=== PATIENT | male | born 1975 | race African-American/Black ===

== ENCOUNTER 2020-11-15 16:31 | Observation (INO) ==
[2020-11-15] MEDS ORDERED: HYDROmorphone 2 MG/1 ML VIAL IV STA ×2 (17:15→18:41)
[2020-11-15] MEDS ORDERED: ONDANSETRON 4 MG/2 ML VIAL IV STA (17:15)
[2020-11-15] MEDS ORDERED: PANTOPRAZOLE 40 MG VIAL IV STA (17:15)
[2020-11-15 17:56] LABS: Basophils % 0.3 % (0.0-0.8); Eosinophils # 0.1 10*3/uL (0.0-0.87); Eosinophils % 0.6 % (0.00-10.9); Hemoglobin 15.1 GM/DL (14.0-18.0); Immature Granulocytes % 0.5 %; Immature Granulocytes Absolute 0.06 #; Lymphocytes # 1.5 10*3/uL (1.4-4.0); Lymphocytes % 13.1 % (21.2-54.2); Mean Corpuscular HGB Conc 32.8 GM/DL (32-36); Mean Corpuscular Volume 88.3 FL (87-102); Mean Platelet Volume 9.9 FL (9.6-12.0); Monocytes % 4.4 % (1.7-12.7); Neutrophils % 81.1 % (38.7-73.9); Platelet Count 292 T/CUMM (130-400); Red Blood Count 5.21 MC/CUMM (3.8-5.5); Red Cell Distribution Width 14.2 % (9.3-17.3); White Blood Count 11.5 T/CUMM (4-12)
[2020-11-15 18:15] LABS: Albumin 4.3 G/DL (3.4-5.0); Bilirubin,Total 0.6 MG/DL (0.2-1.0); Calcium 9.3 MG/DL (8.5-10.1); Osmolality,Calculated 276.7 MOS/KG (273-304); Total Protein 8.3 G/DL (6.4-8.3)
[2020-11-15 18:26] LABS: Bilirubin,Urine Negative (Negative); Blood, Urine Negative (Negative); Glucose,Urine (UA) 150 mg/dL (Negative); Ketones,Urine Negative (Negative); Mucus,Urine Occasional /LPF (Occasional); Nitrite,Urine Negative (Negative); Protein,Urine 100 MG/DL; RBC,Urine 3 /HPF (0-4); Urine Appearance CLEAR (Clear); Urine Color Straw (Yellow); Urine Specific Gravity 1.014 (1.001-1.035); Urine Urobilinogen < 2.0 EU/DL (0.2-1.0); WBC,Urine <1 /HPF (0-6)
[2020-11-15] MEDS ORDERED: hydrALAZINE 20 MG/1 ML VIAL IV STA (18:32)
[2020-11-15] MEDS ORDERED: ENOXAPARIN 100 MG/ML SYRINGE SUBCUT STA (18:41)
[2020-11-15 18:42] LABS: Lymphocytes 8 % (20-55); Segmented Neutrophils 88 % (50-85); Total Cells Counted 100
[2020-11-15 18:43] LABS: Platelet Estimate Normal
[2020-11-15 19:36] LABS: INR 0.9; PT Patient Result 10.2 SECS (9.8-11.9)
[2020-11-15] MEDS ORDERED: LACTULOSE 20 GM/30 ML UDCUP PO PRN (19:44)
[2020-11-15] MEDS ORDERED: ONDANSETRON 4 MG/2 ML VIAL IV PRN (19:44)
[2020-11-15] MEDS ORDERED: PROMETHAZINE 25 MG/1 ML VIAL IM PRN (19:44)
[2020-11-15] MEDS: HYDROmorphone 2 MG/1 ML VIAL IV PRN (21:20)
[2020-11-15] MEDS: hydrALAZINE 20 MG/1 ML VIAL IV PRN (21:25)
[2020-11-15] MEDS: SODIUM CHLORIDE 0.9% 1,000 ML IV SCH (21:31)
[2020-11-15] MEDS: DOCUSATE SODIUM 100 MG CAPSULE PO SCH (21:34)
[2020-11-16] MEDS: HYDROmorphone 2 MG/1 ML VIAL IV PRN ×3 (02:00→20:32)
[2020-11-16] MEDS: ACETAMINOPHEN 325 MG TABLET PO PRN (02:05)
[2020-11-16] MEDS ORDERED: diphenhydrAMINE CAP 25 MG CAPSULE PO SCH (04:12)
[2020-11-16] MEDS ORDERED: diphenhydrAMINE CAP 25 MG CAPSULE PO PRN (04:21)
[2020-11-16] MEDS: diphenhydrAMINE CAP 25 MG CAPSULE PO PRN ×2 (04:39→10:31)
[2020-11-16 05:46] LABS: Basophils % 0.4 % (0.0-0.8); Eosinophils # 0.1 10*3/uL (0.0-0.87); Eosinophils % 0.6 % (0.00-10.9); Hematocrit 39.1 VOL% (42.0-52.0); Hemoglobin 12.9 GM/DL (14.0-18.0); Immature Granulocytes % 0.5 %; Immature Granulocytes Absolute 0.06 #; Lymphocytes # 1.6 10*3/uL (1.4-4.0); Lymphocytes % 14.3 % (21.2-54.2); Mean Corpuscular Volume 88.1 FL (87-102); Mean Platelet Volume 10.4 FL (9.6-12.0); Monocytes % 8.6 % (1.7-12.7); Neutrophils % 75.6 % (38.7-73.9); Platelet Count 250 T/CUMM (130-400); Red Blood Count 4.44 MC/CUMM (3.8-5.5); Red Cell Distribution Width 14.4 % (9.3-17.3); White Blood Count 11.3 T/CUMM (4-12)
[2020-11-16 06:05] LABS: Albumin 3.4 G/DL (3.4-5.0); Bilirubin,Total 0.5 MG/DL (0.2-1.0); Osmolality,Calculated 277.7 MOS/KG (273-304); Potassium 3.8 MMOL/L (3.5-5.1); Risk Ratio 3.48; Total Protein 7.2 G/DL (6.4-8.3); VLDL CHOLESTEROL 22.8 MG/DL
[2020-11-16] MEDS ORDERED: MAGNESIUM HYDROXIDE SUSP 30 ML UDCUP PO PRN (08:28)
[2020-11-16] MEDS ORDERED: traMADol 50 MG TABLET PO PRN (08:51)
[2020-11-16] MEDS ORDERED: BACLOFEN 10 MG TABLET PO PRN (08:51)
[2020-11-16] MEDS ORDERED: NON-FORMULARY MEDICATION (Omeprazole 20 mg Capsule,Delayed Release(Dr/Ec)) PO SCH (09:00)
[2020-11-16] MEDS: SPIRONOLACTONE 25 MG TABLET PO SCH (09:19)
[2020-11-16] MEDS: SERTRALINE 100 MG TABLET PO SCH (09:19)
[2020-11-16] MEDS: ENOXAPARIN 100 MG/ML SYRINGE SUBCUT SCH ×2 (09:20→22:04)
[2020-11-16] MEDS: carvediloL 25 MG TABLET PO SCH ×2 (09:20→20:31)
[2020-11-16] MEDS: DOCUSATE SODIUM 100 MG CAPSULE PO SCH ×2 (09:20→20:31)
[2020-11-16] MEDS: AMIODARONE 200 MG TABLET PO SCH ×3 (09:20→20:31)
[2020-11-16] MEDS: LOSARTAN 25 MG TABLET PO SCH (10:15)
[2020-11-16] MEDS: PANTOPRAZOLE 40 MG VIAL IV SCH (10:16)
[2020-11-16] MEDS: SODIUM CHLORIDE 0.9% 1,000 ML IV SCH (12:12)
[2020-11-17] MEDS: HYDROmorphone 2 MG/1 ML VIAL IV PRN ×2 (05:37→17:38)
[2020-11-17 06:15] LABS: Basophils % 0.2 % (0.0-0.8); Eosinophils # 0.1 10*3/uL (0.0-0.87); Eosinophils % 0.7 % (0.00-10.9); Hemoglobin 12.6 GM/DL (14.0-18.0); Immature Granulocytes % 0.4 %; Immature Granulocytes Absolute 0.04 #; Lymphocytes # 1.6 10*3/uL (1.4-4.0); Lymphocytes % 15.4 % (21.2-54.2); Mean Corpuscular HGB Conc 33.2 GM/DL (32-36); Mean Corpuscular Volume 88.2 FL (87-102); Mean Platelet Volume 10.3 FL (9.6-12.0); Monocytes % 7.5 % (1.7-12.7); Neutrophils % 75.8 % (38.7-73.9); Platelet Count 218 T/CUMM (130-400); Red Blood Count 4.31 MC/CUMM (3.8-5.5); Red Cell Distribution Width 14.4 % (9.3-17.3); White Blood Count 10.1 T/CUMM (4-12)
[2020-11-17 06:45] LABS: Albumin 3.2 G/DL (3.4-5.0); Bilirubin,Total 1.4 MG/DL (0.2-1.0); Calcium 8.7 MG/DL (8.5-10.1); Osmolality,Calculated 276.7 MOS/KG (273-304); Total Protein 6.9 G/DL (6.4-8.3)
[2020-11-17] MEDS: AMIODARONE 200 MG TABLET PO SCH ×3 (07:28→20:38)
[2020-11-17] MEDS: hydrALAZINE 20 MG/1 ML VIAL IV PRN (07:28)
[2020-11-17] MEDS: carvediloL 25 MG TABLET PO SCH ×3 (07:29→20:38)
[2020-11-17] MEDS ORDERED: cloNIDine 0.1 MG TABLET PO ONE (07:50)
[2020-11-17 09:31] LABS: Troponin I 0.048 NG/ML (0.00-0.045)
[2020-11-17 12:14] LABS: Troponin I 0.042 NG/ML (0.00-0.045)
[2020-11-17] MEDS: SERTRALINE 100 MG TABLET PO SCH (12:40)
[2020-11-17] MEDS: DOCUSATE SODIUM 100 MG CAPSULE PO SCH ×2 (12:40→20:38)
[2020-11-17] MEDS ORDERED: amLODIPine 5 MG TABLET PO SCH (13:30)
[2020-11-17 15:38] LABS: Troponin I 0.039 NG/ML (0.00-0.045)
[2020-11-17] MEDS: ENOXAPARIN 100 MG/ML SYRINGE SUBCUT SCH ×2 (17:16→20:38)
[2020-11-17] MEDS: PANTOPRAZOLE 40 MG VIAL IV SCH (17:16)
[2020-11-17] MEDS: LOSARTAN 25 MG TABLET PO SCH ×3 (17:17→20:38)
[2020-11-17] MEDS: SPIRONOLACTONE 25 MG TABLET PO SCH (17:18)
[2020-11-17] MEDS: ASPIRIN EC 81 MG TABLET PO SCH (17:37)
[2020-11-17] MEDS: ROSUVASTATIN 20 MG TABLET PO SCH (17:37)
[2020-11-17] MEDS: SODIUM CHLORIDE 0.9% 1,000 ML IV SCH (19:51)
[2020-11-17] MEDS ORDERED: cloNIDine 0.1 MG TABLET PO SCH (21:00)
[2020-11-18 06:00] LABS: Basophils % 0.3 % (0.0-0.8); Eosinophils # 0.1 10*3/uL (0.0-0.87); Eosinophils % 0.7 % (0.00-10.9); Hematocrit 35.4 VOL% (42.0-52.0); Hemoglobin 12.2 GM/DL (14.0-18.0); Immature Granulocytes % 0.4 %; Immature Granulocytes Absolute 0.04 #; Lymphocytes # 1.5 10*3/uL (1.4-4.0); Lymphocytes % 15.8 % (21.2-54.2); Mean Corpuscular HGB Conc 34.5 GM/DL (32-36); Mean Corpuscular Volume 88.3 FL (87-102); Mean Platelet Volume 10.8 FL (9.6-12.0); Monocytes % 8.7 % (1.7-12.7); Neutrophils % 74.1 % (38.7-73.9); Platelet Count 236 T/CUMM (130-400); Red Blood Count 4.01 MC/CUMM (3.8-5.5); Red Cell Distribution Width 14.3 % (9.3-17.3); White Blood Count 9.4 T/CUMM (4-12)
[2020-11-18] MEDS: HYDROmorphone 2 MG/1 ML VIAL IV PRN (06:19)
[2020-11-18 06:31] LABS: Bilirubin,Total 0.9 MG/DL (0.2-1.0); Calcium 8.8 MG/DL (8.5-10.1); Osmolality,Calculated 277.5 MOS/KG (273-304); Potassium 3.9 MMOL/L (3.5-5.1); Total Protein 6.8 G/DL (6.4-8.3)
[2020-11-18] MEDS ORDERED: amLODIPine 5 MG TABLET PO SCH (09:00)
[2020-11-18] MEDS ORDERED: CHLORTHALIDONE 25 MG TABLET PO SCH (09:00)
[2020-11-18] MEDS: DOCUSATE SODIUM 100 MG CAPSULE PO SCH (09:15)
[2020-11-18] MEDS: AMIODARONE 200 MG TABLET PO SCH (09:15)
[2020-11-18] MEDS: ASPIRIN EC 81 MG TABLET PO SCH (09:15)
[2020-11-18] MEDS: carvediloL 25 MG TABLET PO SCH (09:15)
[2020-11-18] MEDS: ROSUVASTATIN 20 MG TABLET PO SCH (09:15)
[2020-11-18] MEDS: LOSARTAN 25 MG TABLET PO SCH (09:16)
[2020-11-18] MEDS: SERTRALINE 100 MG TABLET PO SCH (09:16)
[2020-11-18] MEDS: ENOXAPARIN 100 MG/ML SYRINGE SUBCUT SCH (09:17)
[2020-11-18] MEDS: PANTOPRAZOLE 40 MG VIAL IV SCH (09:20)
[2020-11-18] MEDS: SPIRONOLACTONE 25 MG TABLET PO SCH (09:57)
[2020-11-18] MEDS ORDERED: LOSARTAN 25 MG TABLET PO ONE (13:30)
[2020-11-18 13:38] LABS: Barbiturates Screen,Urine Negative (Negative); Benzodiazepines Screen,Urine Negative (Negative); Cannabinoid Screen,Urine Negative (Negative); Opiate Screen,Urine Positive (Negative); Phencyclidine Screen,Urine Negative (Negative)
[2020-11-18] MEDS: ACETAMINOPHEN 325 MG TABLET PO PRN (16:28)
[2020-11-18 16:39] VITALS: BP 134/100
[2020-11-18] MEDS ORDERED: APIXABAN 5 MG TABLET PO SCH (21:00)
[2020-11-18] MEDS ORDERED: LOSARTAN 50 MG TABLET PO SCH (21:00)
[2020-11-21] MEDS ORDERED: ERGOCALCIFEROL 50,000 UNIT CAPSULE PO SCH (09:00)
== END 2020-11-18 16:51 | disposition home or self-care (01) ==
LOC: N.ED 16:31 → N.3E 16:31
PROVIDERS: ADMIT Family Medicine; ATTEND Family Medicine